=== PATIENT | female | born 1955 | race Caucasian/White ===

== ENCOUNTER 2019-08-03 14:22 | Outpatient (CLI) | payer BC, SELFPAY ==
[2019-08-03 14:57] LABS: Basophils Absolute Auto 0.1 K/mm3 (0.0-0.1); Basophils Percent Auto 0.9 % (0.2-1.2); Eosinophils Absolute Auto 0.2 K/mm3 (0-0.3); Eosinophils Percent Auto 2.2 % (0-4.4); Hematocrit 42.8 % (37.0-47.0); Immature Granulocyte Absolute 0.02 K/mm3 (0.00-0.031); Immature Granulocyte Percent A 0.2 % (0-0.5); Lymphocytes Absolute Auto 1.31 K/mm3 (0.9-3.2); Mean Corpuscular HGB Conc 32.7 g/dl (32-36); Mean Corpuscular Volume 88.6 fl (80-100); Mean Platelet Volume 9.4 fl (7.4-10.4); Monocytes Absolute Auto 0.6 K/mm3 (0.1-0.6); Monocytes Percent Auto 7.1 % (2.6-8.5); Neutrophils Percent Auto 73.6 % (45.5-73.1); Platelet Count Result 244 k/mm3 (150-375); Red Blood Count 4.83 M/mm3 (4.2-5.4); Red Cell Distribution Width 13.4 % (11.5-14.5); White Blood Count 8.2 K/mm3 (4.5-10.0)
[2019-08-03 15:07] LABS: Alanine Aminotransferase 27 U/L (4-35); Albumin Level 4.4 g/dL (3.5-5.1); Alkaline Phosphatase 58 U/L (38-126); Aspartate Amino Transferase 26 U/L (14-36); Bilirubin,Total 0.4 mg/dL (0.2-1.3); Blood Urea Nitrogen 19 mg/dL (7-17); Calcium 9.2 mg/dL (8.4-10.2); Carbon Dioxide 24 mmol/L (22-30); Chloride 110 mmol/L (98-107); Cholesterol 247 mg/dL (0-200); Estimated Glomerular Filt Rate 45; Glucose 105 mg/dL (65-105); HDL Direct 58 mg/dL; Potassium 3.8 mmol/L (3.4-5.0); Sodium 140 mmol/L (137-145); Triglycerides 170 mg/dL (<150)
[2019-08-03 15:18] LABS: LDL Cholesterol Direct 159 mg/dL
[2019-08-03 16:03] LABS: Vitamin D 25 Hydroxy 49.2 ng/mL
== END 2019-08-03 14:23 | disposition home or self-care (01) ==
PROVIDERS: PCP Internal Medicine; Visit Provider Nurse Practitioner
DX: Z13.29 Encounter for screening for other suspected endocrine disorder (principal); Z13.220 Encounter for screening for lipoid disorders; E55.9 Vitamin D deficiency, unspecified
CPT/HCPCS: 36415; 80053; 80061; 82306; 85025

== ENCOUNTER 2022-09-05 09:21 | Outpatient (CLI) | payer MEDICARE, OTHER, SELFPAY ==
[2022-09-05 14:32] LABS: Basophils Absolute Auto 0.1 K/mm3 (0.0-0.1); Basophils Percent Auto 1.1 % (0.2-1.2); Eosinophils Absolute Auto 0.2 K/mm3 (0-0.3); Eosinophils Percent Auto 2.4 % (0-4.4); Hematocrit 45.8 % (37.0-47.0); Hemoglobin 14.7 g/dL (12.0-15.0); Immature Granulocyte Absolute 0.01 K/mm3 (0.00-0.031); Immature Granulocyte Percent A 0.1 % (0-0.5); Lymphocytes Absolute Auto 1.45 K/mm3 (0.9-3.2); Lymphocytes Percent Auto 18.5 % (18.3-44.2); Mean Corpuscular HGB Conc 32.1 g/dl (32-36); Mean Corpuscular Hemoglobin 28.9 pg (26-34); Mean Platelet Volume 9.6 fl (7.4-10.4); Monocytes Absolute Auto 0.5 K/mm3 (0.1-0.6); Monocytes Percent Auto 6.8 % (2.6-8.5); Neutrophils Absolute Auto 5.6 K/mm3 (1.3-6.7); Neutrophils Percent Auto 71.1 % (45.5-73.1); Platelet Count Result 262 k/mm3 (150-375); Red Blood Count 5.09 M/mm3 (4.2-5.4); Red Cell Distribution Width 13.2 % (11.5-14.5); White Blood Count 7.8 K/mm3 (4.5-10.0)
[2022-09-05 14:39] LABS: Alanine Aminotransferase 49 U/L (6-35); Albumin Level 4.5 g/dL (3.5-5.1); Alkaline Phosphatase 63 U/L (38-126); Anion Gap 6 mmol/L (8-16); Aspartate Amino Transferase 36 U/L (14-36); Bilirubin,Total 0.6 mg/dL (0.2-1.3); Blood Urea Nitrogen 25 mg/dL (7-17); Calcium 9.4 mg/dL (8.4-10.2); Carbon Dioxide 26 mmol/L (22-30); Chloride 105 mmol/L (98-107); Cholesterol 275 mg/dL (0-200); Estimated Glomerular Filt Rate 50; Glucose 114 mg/dL (65-110); HDL Direct 56 mg/dL; Potassium 5.1 mmol/L (3.4-5.0); Sodium 137 mmol/L (137-145); Triglycerides 123 mg/dL (<150)
[2022-09-05 14:50] LABS: LDL Cholesterol Direct 180 mg/dL
[2022-09-05 16:37] LABS: Vitamin D 25 Hydroxy 54.2 ng/mL
== END 2022-09-05 09:22 | disposition home or self-care (01) ==
LOC: ANHGOSHLAB 09:22
PROVIDERS: PCP Internal Medicine; Visit Provider Nurse Practitioner
DX: Z13.29 Encounter for screening for other suspected endocrine disorder (principal); Z13.220 Encounter for screening for lipoid disorders; R79.89 Other specified abnormal findings of blood chemistry; E55.9 Vitamin D deficiency, unspecified
CPT/HCPCS: 36415; 80053; 80061; 82306; 85025

== ENCOUNTER 2022-11-19 01:53 | Day surgery (SDC) | payer MEDICARE, OTHER, SELFPAY ==
[2022-11-12 14:48] VITALS: BMI 26.7
[2022-11-19 10:09] VITALS: BP 136/96; PULSE 97; RESP 20; TEMP 36.2; O2SAT 100; BMI 26.9
[2022-11-19] MEDS: LACTATED RINGERS 1,000 ML 150 ML IV CONT (10:16)
--- NOTE | 2022-11-19 10:30 | P.HP_ITS ---
History of Present Illness History of Present Illness Consent: Risks, benefits, and alternatives have been discussed and questions answered. Patient agrees to proceed with procedure. Chief complaint: neoplasm screening Narrative: Samantha Crisostomo is a 67 year old female Presents for screening colonoscopy. Patient's current weight appetite and bowel movements are normal. Patient denies abdominal pain. She has had no bleeding. Family history is noncontributory. Previous colonoscopy 15 years ago was described as unremarkable. Review of Systems Review of Systems: Review of systems noncontributory. FORMERLY [facility], [facility] Past Medical History Medical History Environmental allergies Surgical History Surgical History H/O knee surgery Left: 05/2017 Family History Family History Father Cancer of kidney Sibling Bladder cancer Social History Social History Smoking status: Never smoker Alcohol intake: current Drinks per week: 7 Alcohol use details: 1 glass of wine every night Substance use type: does not use Lack of Transportation: No Lack of Food: Never True Current Housing: I Have Housing Concerned About Future Housing: No Difficulty Paying Gas/Electric Bills: No Difficulty Paying for Meds: No Currently Unemployed: No Education: High School Diploma/GED Difficulty w/ Childcare or Family Care: No Living arrangements: other Additional living arrangements comments: with sp Meds Home Medications and Allergies Allergies Allergy/AdvReac Type Severity Reaction Status Date / Time Penicillins Allergy Unknown Hives Verified 11/19/22 10:08 Vital Signs Vital Signs - 24 hr 11/19/22 10:09 Temperature 97.2 F L Pulse Rate 97 Respiratory Rate 20 Blood Pressure 136/96 H Pulse Oximetry 100 Oxygen Delivery Room Air Exam Narrative: Physical exam reveals patient to be alert. Vital signs stable. HEENT exam is unremarkable. Patient is anicteric. Lungs are clear to auscultation and percussion. Heart is without murmur or extra sounds. Abdomen bowel sounds are present soft nontender with no organomegaly. Digital external rectal exam is normal. Assessment and Plan Assessment and plan (1) Screening for colon cancer: Code(s): Z12.11 - Encounter for screening for malignant neoplasm of colon Status: Acute Assessment and Plan: Patient presents for screening colonoscopy. She appears to be at average risk for colon polyps.
--- NOTE | 2022-11-19 10:45 | P.PNAN_ITS ---
Anes - Initial Pre Proc Eval Procedure: Operation Date: 11/19/22 11:00 Proposed Procedures p Screening Colonoscopy - Sunny So MD Date/Time: 11/19/22 10:45 Surgeon: Sunny So MD Pre Op Diagnosis: neoplasm screening Patient Data Age: 67 Gender: F Height: 1.65 m Weight: 73.5 kg Last Vital Signs Temp 97.2 F L 11/19/22 10:09 Pulse 97 11/19/22 10:09 Resp 20 11/19/22 10:09 BP 136/96 H 11/19/22 10:09 Pulse Ox 100 11/19/22 10:09 O2 Del Method Room Air 11/19/22 10:09 Allergies Allergy/AdvReac Type Severity Reaction Status Date / Time Penicillins Allergy Unknown Hives Verified 11/19/22 10:08 Patient hx anesthesia problems: none Family hx anesthesia problems: none Results Review: All pre-operative results and documents have been reviewed as part of the pre- operative evaluation. FORMERLY [facility] Past Medical History Medical History Environmental allergies Surgical History Surgical History H/O knee surgery Left: 05/2017 Family History Family History Father Cancer of kidney Sibling Bladder cancer Social History Social History Smoking status: Never smoker Alcohol intake: current Drinks per week: 7 Alcohol use details: 1 glass of wine every night Substance use type: does not use Lack of Transportation: No Lack of Food: Never True Current Housing: I Have Housing Concerned About Future Housing: No Difficulty Paying Gas/Electric Bills: No Difficulty Paying for Meds: No Currently Unemployed: No Education: High School Diploma/GED Difficulty w/ Childcare or Family Care: No Living arrangements: other Additional living arrangements comments: with sp Anes - Eval Final PreProcedure Day of Procedure 11/19/22 10:45 Patient weight: normal Heart: regular rate and rhythm Lungs: clear to auscultation Airway: Mallampati scale class II Neurological: alert and oriented Last oral intake: >/= 8 hours ASA classification: II Emergent: no Anesthetic plan: proceed Anesthesia type and monitoring: general GIVS and standard monitoring Results Review: All pre-operative results and documents have been reviewed as part of the pre- operative evaluation. Informed Consent: The patient's anesthetic plan and its attendant risks and benefits were discussed with the patient/family/POA. Questions were solicited and answers provided to the satisfaction of the patient/family/POA.
[2022-11-19 12:16] VITALS: BP 124/80; PULSE 81; RESP 28; O2SAT 98
[2022-11-19 12:26] VITALS: BP 119/78; PULSE 77; RESP 24; O2SAT 99
[2022-11-19 12:48] VITALS: BP 131/81; PULSE 74; RESP 23; O2SAT 99
== END 2022-11-19 12:45 | disposition home or self-care (01) ==
PROVIDERS: PCP Internal Medicine; Visit Provider Internal Medicine Gastroenterology
PROC: 0DJD8ZZ Inspection of Lower Intestinal Tract, Via Natural or Artificial Opening Endoscopic (ICD-10-PCS; CPT 45378; principal; 2022-11-19 11:00)
DX: Z12.11 Encounter for screening for malignant neoplasm of colon (principal); K64.8 Other hemorrhoids; Z80.51 Family history of malignant neoplasm of kidney; Z80.52 Family history of malignant neoplasm of bladder
CPT/HCPCS: G0105; J2704; J7120

== ENCOUNTER 2023-03-19 11:08 | Outpatient (CLI) | payer MEDICARE, OTHER, SELFPAY ==
[2023-03-19 15:26] LABS: Alanine Aminotransferase 32 U/L (6-35); Albumin Level 4.5 g/dL (3.5-5.1); Alkaline Phosphatase 65 U/L (38-126); Anion Gap 9 mmol/L (8-16); Aspartate Amino Transferase 59 U/L (14-36); Bilirubin,Total 0.6 mg/dL (0.2-1.3); Blood Urea Nitrogen 19 mg/dL (7-17); Calcium 9.8 mg/dL (8.4-10.2); Carbon Dioxide 24 mmol/L (22-30); Chloride 106 mmol/L (98-107); Cholesterol 283 mg/dL (0-200); Estimated Glomerular Filt Rate 50; Glucose 119 mg/dL (65-110); HDL Direct 61 mg/dL; Potassium 4.3 mmol/L (3.4-5.0); Sodium 139 mmol/L (137-145); Triglycerides 209 mg/dL (<150)
[2023-03-19 15:38] LABS: LDL Cholesterol Direct 170 mg/dL
[2023-03-21 20:33] LABS: Apolipoprotein B 149 mg/dL (<90)
== END 2023-03-19 11:09 | disposition home or self-care (01) ==
LOC: ANHGOSHLAB 11:12
PROVIDERS: PCP Internal Medicine; Visit Provider Nurse Practitioner
DX: E78.5 Hyperlipidemia, unspecified (principal); R73.9 Hyperglycemia, unspecified; R79.89 Other specified abnormal findings of blood chemistry
CPT/HCPCS: 36415; 80053; 80061; 82172; 83036

== ENCOUNTER 2023-09-15 09:46 | Outpatient (CLI) | payer MEDICARE, OTHER, SELFPAY ==
[2023-09-15 14:46] LABS: Basophils Absolute Auto 0.1 K/mm3 (0.0-0.1); Basophils Percent Auto 1.1 % (0.2-1.2); Eosinophils Absolute Auto 0.2 K/mm3 (0-0.3); Eosinophils Percent Auto 2.9 % (0-4.4); Hematocrit 45.6 % (37.0-47.0); Hemoglobin 14.2 g/dL (12.0-15.0); Immature Granulocyte Absolute 0.02 K/mm3 (0.00-0.031); Immature Granulocyte Percent A 0.3 % (0-0.5); Lymphocytes Absolute Auto 1.41 K/mm3 (0.9-3.2); Lymphocytes Percent Auto 17.7 % (18.3-44.2); Mean Corpuscular HGB Conc 31.1 g/dl (32-36); Mean Corpuscular Hemoglobin 28.6 pg (26-34); Mean Corpuscular Volume 91.9 fl (80-100); Mean Platelet Volume 9.7 fl (7.4-10.4); Monocytes Absolute Auto 0.5 K/mm3 (0.1-0.6); Monocytes Percent Auto 6.4 % (2.6-8.5); Neutrophils Absolute Auto 5.7 K/mm3 (1.3-6.7); Neutrophils Percent Auto 71.6 % (45.5-73.1); Platelet Count Result 258 k/mm3 (150-375); Red Blood Count 4.96 M/mm3 (4.2-5.4); Red Cell Distribution Width 13.6 % (11.5-14.5)
[2023-09-15 15:39] LABS: Hepatitis C Virus Antibody Negative (Negative)
[2023-09-15 15:52] LABS: Alanine Aminotransferase 42 U/L (6-35); Albumin Level 4.6 g/dL (3.5-5.1); Alkaline Phosphatase 67 U/L (38-126); Anion Gap 11 mmol/L (4-12); Aspartate Amino Transferase 55 U/L (14-36); Bilirubin,Total 0.6 mg/dL (0.2-1.3); Blood Urea Nitrogen 20 mg/dL (7-17); Calcium 9.7 mg/dL (8.4-10.2); Carbon Dioxide 24 mmol/L (22-30); Chloride 106 mmol/L (98-107); Cholesterol 229 mg/dL (0-200); Estimated Glomerular Filt Rate > 60; Glucose 107 mg/dL (65-110); HDL Direct 66 mg/dL; Potassium 4.3 mmol/L (3.4-5.0); Sodium 141 mmol/L (137-145); Triglycerides 147 mg/dL (<150)
[2023-09-15 16:03] LABS: LDL Cholesterol Direct 136 mg/dL
[2023-09-15 16:54] LABS: Hemoglobin A1C 6.1 % (<5.7)
[2023-09-16 14:18] LABS: ANA Cascade Screen NEGATIVE (NEGATIVE)
[2023-09-16 15:14] LABS: Albumin 4.3 g/dL (3.8-4.8); Alpha 1 Globulin 0.2 g/dL (0.2-0.3); Alpha 2 Globulin 0.8 g/dL (0.5-0.9); Beta 1 Globulin 0.4 g/dL (0.4-0.6); Gamma Globulin 0.9 g/dL (0.8-1.7)
[2023-09-16 16:03] LABS: Creatinine, Random Urine 186 mg/dL (20-275); Total Protein/Creatinine Ratio 43 mg/g creat (24-184)
== END 2023-09-15 09:47 | disposition home or self-care (01) ==
PROVIDERS: PCP Internal Medicine; Visit Provider Nurse Practitioner
DX: E78.5 Hyperlipidemia, unspecified (principal); E55.9 Vitamin D deficiency, unspecified; N18.9 Chronic kidney disease, unspecified; R73.03 Prediabetes; R74.01 Elevation of levels of liver transaminase levels
CPT/HCPCS: 36415; 80053; 80061; 82570; 83036; 84155; 84156; 84165; 84166; 85025; 86038; 86225; 86235; 86364; 86803

== ENCOUNTER 2024-03-18 11:10 | Outpatient (CLI) | payer MEDICARE, OTHER, SELFPAY ==
[2024-03-18 19:16] LABS: Alanine Aminotransferase 27 U/L (6-35); Albumin Level 4.3 g/dL (3.5-5.1); Alkaline Phosphatase 73 U/L (38-126); Anion Gap 9 mmol/L (4-12); Aspartate Amino Transferase 29 U/L (14-36); Bilirubin,Total 0.7 mg/dL (0.2-1.3); Blood Urea Nitrogen 15 mg/dL (7-17); Calcium 9.7 mg/dL (8.4-10.2); Carbon Dioxide 26 mmol/L (22-30); Chloride 105 mmol/L (98-107); Cholesterol 203 mg/dL (0-200); Estimated Glomerular Filt Rate 57; Glucose 108 mg/dL (65-110); HDL Direct 61 mg/dL; Potassium 4.9 mmol/L (3.4-5.0); Sodium 140 mmol/L (137-145); Triglycerides 154 mg/dL (<150)
[2024-03-18 19:26] LABS: LDL Cholesterol Direct 103 mg/dL
[2024-03-18 19:57] LABS: Vitamin D 25 Hydroxy 39.2 ng/mL
[2024-03-18 20:47] LABS: Hemoglobin A1C 6.1 % (<5.7)
== END 2024-03-18 11:11 | disposition home or self-care (01) ==
LOC: ANHGOSHLAB 11:12
PROVIDERS: PCP Internal Medicine; Visit Provider Nurse Practitioner
DX: R73.03 Prediabetes (principal); R74.01 Elevation of levels of liver transaminase levels; E55.9 Vitamin D deficiency, unspecified
CPT/HCPCS: 36415; 80053; 80061; 82306; 83036

== ENCOUNTER 2024-04-19 14:16 | Outpatient (CLI) | payer MEDICARE, OTHER, SELFPAY ==
--- NOTE | ~2024-04-19 | XR_ITS ---
EXAM: XR hand RT min 3V DATE: 04/19/2024 14:32 HISTORY: M18.10 - Unilateral primary osteoarthritis of first carpo... . COMPARISON: None available. FINDINGS: Normal mineralization. No fracture or dislocation. No lytic or blastic lesion. Scattered a rthritic changes, typical of osteoarthritic arthritis, moderate at the first CMC joint, first interph alangeal joint, and the second, third, and fifth DIP joints. No erosion or periosteal change. Soft ti ssues within normal limits. IMPRESSION: Moderate polyarticular osteoarthritis. Reviewed, dictated and finalized at location [facility]
--- OUTSIDE RECORDS SUMMARY | 2024-04-19 16:40 | XMS_ITS | Referral Summary ---
Author Organization [facility] Address [address] [place] [address] Care Team Providers Care Water Resources Project Manager Name Role Phone JillKam benton Shahzad DO Primary Care Provider [phone] Mauri Ludwig MD Unavailable [phone] Source Comments [facility],non-owned Affiliates and Associated Physician Practices is amultiple site organization consisting of ambulatory clinics and hospital sitesin [place] and [place]. This disclosure is being madepursuant to the Care Everywhere program and may not contain all information available regarding this patient. Last updated 17.[facility] Allergies Active Allergy Reactions Criticality Noted Date Comments Penicillins Urticaria Medium Medications * Be aware that medications may not be up to date on this document. Alwaysverify current medications with the patient. Medication Sig Dispensed Refills Start Date End Date Status diclofenac sodium EC (VOLTAREN) 75 MG tablet Take 1 tablet by mouth 2 times daily 60 tablet 5 02/06/2018 Active Active Problems Problem Noted Date Diagnosed Date Status post left knee replacement 06/05/2017 Primary osteoarthritis of left knee 03/25/2017 Social History Tobacco Use Types Packs/Day Years Used Date Smoking Tobacco: Never Smokeless Tobacco: Never Alcohol Use Standard Drinks/Week Comments Yes 0 (1 standard drink = 0.6 oz pur e alcohol) glass of wine daily Sex and Gender Information Value Date Recorded Sex Assigned at Not on file Gender Identity Not on file Sexual Orientation Not on file Last Filed Vital Signs Vital Sign Reading Time Taken Comments Blood Pressure 113/53 06/07/2017 7:34 AM CDT Pulse 80 06/07/2017 7:34 AM CDT Temperature 36.7 C (98.1 F) 06/07/2017 7:34 AM CDT Respiratory Rate 16 06/07/2017 7:34 AM CDT Oxygen Saturation 97% 06/07/2017 7:34 AM CDT Inhaled Oxygen Concentration - - Weight 72.1 kg (159 lb) 06/05/2017 6:22 AM CDT Height 160 cm (5' 3 ) 06/05/2017 6:22 AM CDT Body Mass Index 28.17 06/05/2017 6:22 AM CDT Functional Status Functional Status Response Date of Assess ment Is person deaf or have serious hearing difficult y? No 06/05/2017 Is person blind or have serious difficulty seein g? No 06/05/2017 Does person have serious dif ficulty walking/climbing stairs? Yes 06/05/2017 Does person have difficulty dressing/bathing? No 06/05/2017 Does person have difficulty doing errands alone? No 06/05/2017 Cognitive Status Response Date of Assessm ent Does person have difficulty concentrating/remembering/making decisions? No 06/05/2017 Plan of Treatment Not on file Medical Devices Implanted Type Area Silo Tender Device Identifier Shelf Expiration Date Model / Serial / Lot Cmnt Bone Cblt 40gm Hvisc Strl Implanted:Qty: 1 on 06/05/2017 by Mauri Ludwig MD at [facility] Left: Knee [employer] 11/23/2018 600-15-000 / / [id number] Cmpnt Fem Kn Lt Cr Cmnt Prm Vngrd Intlk 62.5mm Implanted:Qty: 1 on 06/05/2017 by Mauri Ludwig MD at [facility] Left: Knee Peg [employer] 04/22/2027 [id number] / / [id number] Cmpnt Ptlr 28mm 1 Pg Wire Ascnt Arcm Kn Implanted:Qty: 1 on 06/05/2017 by Mauri Ludwig MD at [facility] Left: Knee Peg [employer] 03/17/2022 [id number] / / [id number] Tray Tib 71mm Kn Cocr I Beam Implanted:Qty: 1 on 06/05/2017 by Mauri Ludwig MD at [facility] Left: Knee Peg [employer]omet 11/14/2026 [id number] / / [id number] Brng [id number] Vngrd Arcm Kn Ant Stab Implanted:Qty: 1 on 06/05/2017 by Mauri Ludwig MD at [facility] Left: Knee Peg [employer] 04/10/2022 [id number] / / [id number] Procedures Procedure Name Priority Date/Time Associated Diagnosis Comments COMPREHENSIVE METABOLIC PANEL Routine 05/15/2017 11:47 AM CDT Preop examination from Last 3 Months or Most Recently Relevant to Health Maintenance Results * (ABNORMAL) COMPREHENSIVE METABOLIC PANEL (05/15/2017 11:47 AM CDT) Glucose 88 74 - 106 mg/dL 05/15/2017 12:29 PM CDT [facility] Sodium 141 136 - 145 mmol/L 05/15/2017 12:29 PM CDT [facility] Potassium 4.0 3.5 - 5.1 mmol/L 05/15/2017 12:29 PM CDT [facility] Chloride 106 98 - 107 mmol/L 05/15/2017 12:29 PM CDT [facility] CO2 28 22 - 31 mmol/L 05/15/2017 12:29 PM CDT [facility] Calcium 9.5 8.5 - 10.1 mg/dL 05/15/2017 12:29 PM CDT [facility] Anion Gap 7(L) 8 - 16 mmol/L 05/15/2017 12:29 PM CDT [facility] BUN 17 7 - 21 mg/dL 05/15/2017 12:29 PM CDT [facility] Creatinine 0.90 0.50 - 1.30 mg/dL 05/15/2017 12:29 PM CDT [facility] Alkaline Phosphatase 75 38 - 126 U/L 05/15/2017 12:29 PM CDT [facility] ALT 81(H) 13 - 61 U/L 05/15/2017 12:29 PM CDT [facility] AST 38 5 - 40 U/L 05/15/2017 12:29 PM CDT [facility] Protein Total 7.4 6.4 - 8.2 gm/dL 05/15/2017 12:29 PM CDT [facility] Albumin 3.7 3.4 - 5.0 gm/dL 05/15/2017 12:29 PM CDT [facility] Bilirubin Total 0.5 0.2 - 1.0 mg/dL 05/15/2017 12:29 PM CDT [facility] eGFR by MDRD >60 >60 mL/min/1.7 3m2 05/15/2017 12:29 PM CDT [facility] eGFR by MDRD >60 >60 mL/min/1.7 3m2 05/15/2017 12:29 PM CDT [facility] Blood BLOOD SPECIMEN / Unknown Venipuncture / Unknown 05/15/2017 11:47 AM CDT 05/15/2017 12:09 PM CDT Mauri Ludwig MD LAB - CHEMISTRY OLEGARIO HERNANDEZ [facility] [address] [place] [address] from Last 3 Months or Most Recently Relevant to Health Maintenance Advance Directives * Full Code (Latest Code Status on File) Date Activated Date Inactivated Comments 06/05/2017 12:18 PM 06/07/2017 1:39 PM Care Teams Water Resources Project Manager Relationship Specialty Start Date End Date Kam Roberts DO PCP - General Internal Medicine 03/25/17 [place] [id number] [facility] [address] [place] [address] Orthopedic Surgery 03/25/17
--- OUTSIDE RECORDS SUMMARY | 2024-04-19 16:40 | XMS_ITS | Clinical Summary ---
Author Organization [facility] Address [address] [place] [address] Care Team Providers Care Medical Education Specialist Name Role Phone AfricaKam knapp Shahzad DO Primary Care Provider [phone] Mauri Ludwig MD Unavailable [phone] Source Comments [facility],non-owned Affiliates and Associated Physician Practices is amultiple site organization consisting of ambulatory clinics and hospital sitesin [place], [place], [place] and [place]. This disclosure is being madepursuant to the Care Everywhere program and may not contain all information available regarding this patient. Last updated 17.[facility] Allergies Active Allergy Reactions Criticality Noted Date [...] Mass Index 28.17 06/05/2017 6:22 AM CDT Plan of Treatment Health Maintenance Due Date Last Done Comments BONE DENSITY TESTING 1955 COLOGUARD (AGES 45-75) - COL ON CA SCREENING 1955 COLON MONITORING 1955 COLONOSCOPY - COLON CA SCREENING 1955 CT COLONOGRAPHY - COLON CA SCREENING 1955 Colorectal Cancer Screening 1955 FIT - COLON CA SCREENING 1955 FLEX SIG - COLON CA SCREENING 1955 LIPID TESTING 1955 MAMMOGRAM 1955 HEPATITIS C SCREENING 08/15/1973 DTAP/TDAP/TD VACCINES (1 - Tdap) 08/19/1974 PNEUMOCOCCAL VACCINE 50+ (1 of 1 - PCV) 08/19/2005 ZOSTER VACCINE (1 of 2) 08/19/2005 SCREENING FOR DIABETES 05/15/2020 05/15/2017 COVID-19 VACCINE (1 - 2023-2 5 season) 2023 INFLUENZA VACCINE (#1) 2023 DEPRESSION SCREENING 02/25/2024 Respiratory Syncytial Virus (RSV) Vaccine Pt: or over 60 yrs (1 - 1-dose 75+ series) 08/19/2030 HEPATITIS B VACCINE Aged Out No longe r eligible based on patient's age to complete this topic HIB VACCINE Aged Out No longer eligi ble based on patient's age to complete this topic HPV VACCINE Aged Out No longer eligi ble based on patient's age to complete this topic MENINGOCOCCAL (Group B) VACCINE Aged Out No longer eligible based on patient's age to complete this topic MENINGOCOCCAL VACCINE Aged Out No reese diana eligible based on patient's age to complete this topic Medical Devices Implanted Type Area Applications Systems Engineer Device Identifier Shelf Expiration Date Model / Serial / Lot Cmnt Bone Cblt 40gm Hvisc Strl Implanted:Qty: 1 on 06/05/2017 by Mauri Ludwig MD at [facility] Left: Knee [employer] 11/23/2018 600-15-000 / / [id number] Cmpnt Fem Kn Lt Cr Cmnt Prm Vngrd Intlk 62.5mm Implanted:Qty: 1 on 06/05/2017 by Mauri Ludwig MD at [facility] Left: Knee Peg [employer] 04/22/2027 [id number] / / [id number] Cmpnt Ptlr 28mm 1 Pg Wire Ascnt Arcm Kn Implanted:Qty: 1 on 06/05/2017 by Mauri Ludwig MD at [facility] Left: Knee Peg [employer] 03/17/2022 [id number] / / [id number] Tray Tib 71mm Kn Cocr I Beam Implanted:Qty: 1 on 06/05/2017 by Mauri Ludwig MD at [facility] Left: Knee Peg [employer] 11/14/2026 [id number] / / [id number] Brng [id number] Vngrd Arcm Kn Ant Stab Implanted:Qty: 1 on 06/05/2017 by Mauri Ludwig MD at [facility] Left: Knee Peg [employer] 04/10/2022 [id number] / / [id number] Procedures Procedure Name Priority Date/Time Associated Diagnosis Comments COMPREHENSIVE METABOLIC PANEL Routine 05/15/2017 11:47 AM CDT Preop examination from Last 3 Months or Most Recently Relevant to Health Maintenance Results * (ABNORMAL) COMPREHENSIVE METABOLIC PANEL (05/15/2017 11:47 AM CDT) Pathologist [facility] Glucose 88 74 - 106 mg/dL 05/15/2017 12:29 PM CDT [facility] Sodium 141 136 - 145 mmol/L 05/15/2017 12:29 PM CDT [facility] Potassium 4.0 3.5 - 5.1 mmol/L 05/15/2017 12:29 PM CDT [facility] Chloride 106 98 - 107 mmol/L 05/15/2017 12:29 PM CDT [facility] CO2 28 22 - 31 mmol/L 05/15/2017 12:29 PM CDT [facility] Calcium 9.5 8.5 - 10.1 mg/dL 05/15/2017 12:29 PM CDT [facility] Anion Gap 7(L) 8 - 16 mmol/L 05/15/2017 12:29 PM CDT [facility] BUN 17 7 - 21 mg/dL 05/15/2017 12:29 PM CDT [facility] Creatinine 0.90 0.50 - 1.30 mg/dL 05/15/2017 12:29 PM CDT [facility] Alkaline Phosphatase 75 38 - 126 U/L 05/15/2017 12:29 PM CDT [facility] ALT 81(H) 13 - 61 U/L 05/15/2017 12:29 PM CDT [facility] AST 38 5 - 40 U/L 05/15/2017 12:29 PM CDT [facility] Protein Total 7.4 6.4 - 8.2 gm/dL 05/15/2017 12:29 PM CDT [facility] Albumin 3.7 3.4 - 5.0 gm/dL 05/15/2017 12:29 PM CDT [facility] Bilirubin Total 0.5 0.2 - 1.0 mg/dL 05/15/2017 12:29 PM CDT [facility] eGFR by MDRD >60 >60 mL/min/1.7 3m2 05/15/2017 12:29 PM CDT [facility] eGFR by MDRD >60 >60 mL/min/1.7 3m2 05/15/2017 12:29 PM CDT [facility] Blood BLOOD SPECIMEN / Unknown Venipuncture / Unknown 05/15/2017 11:47 AM CDT 05/15/2017 12:09 PM CDT Mauri Ludwig MD LAB - CHEMISTRY OLEGARIO HERNANDEZ [facility] Organization Address City/State/ZIP Co de Phone Number [facility] [address] [place] [address] from Last 3 Months or Most Recently Relevant to Health Maintenance Advance Directives * Full Code (Latest Code Status on File) Date Activated Date Inactivated Comments 06/05/2017 12:18 PM 06/07/2017 1:39 PM Care Teams Medical Education Specialist Relationship Specialty Start Date End Date Kam Roberts DO PCP - General Internal Medicine 03/25/17 [place] [id number] [facility] [place] [address] [place] [id number] Orthopedic Surgery 03/25/17
--- OUTSIDE RECORDS SUMMARY | 2024-04-19 16:40 | XMS_ITS | Clinical Summary ---
Author Organization [facility] Address [address] [place] [address] Care Team Providers Care Tool And Die Engineer Name Role Phone Unavailable Primary Care Provider Unavailabl e Social History Tobacco Use Types Packs/Day Years Used Date Smoking Tobacco: Never Assessed Comments Unknown Sex and Gender Information Value Date Recorded Sex Assigned at Not on file Legal Sex Female 4:22 PM CDT Gender Identity Not on file Sexual Orientation Not on file Plan of Treatment Health Maintenance Due Date Last Done Comments Colorectal Cancer Screening Colonoscopy (10 Years) 1955 Hepatitis C 08/19/1973 DTaP, Tdap and Td Vaccines ( 1 - Tdap) 08/19/1974 Mammogram Screening 1995 Zoster Vaccines (1 of 2) 08/19/2005 Dexa Scan (General) 08/19/2020 Pneumococcal Vaccine: 65+ Ye ars (1 of 1 - PCV) 08/19/2020 COVID-19 Vaccine ( - 2023-2 5 season) 2023 Influenza Adult (#1) 2023 RSV Immunization or 60+ Years (1 - 1-dose 75+ series) 08/19/2030 Meningococcal B Vaccine Aged Out No l onger eligible based on patient's age to complete this topic Meningococcal Vaccine Aged Out No reese diana eligible based on patient's age to complete this topic RSV Immunizations Under 20 Months Aged Out No longer eligible based on patient's age to complete this topic
--- OUTSIDE RECORDS SUMMARY | 2024-04-19 16:40 | XMS_ITS | Patient Health Summary ---
Author Organization [facility] Address [address] [place] [address] Care Team Providers Care Car Repossessor Name Role Phone Kam Roberts DO Primary Care Provider [phone] Mauri Ludwig MD Unavailable [phone] Note from [facility] [place],non-owned Affiliates and Associated Physician Practices is amultiple site organization consisting of ambulatory clinics and hospital sitesin [place], [place], [place] and [place]. This disclosure is being madepursuant to the Care Everywhere program and may not contain all information available regarding this patient. Last updated 17.[facility] Allergies * Penicillins(Urticaria) -Medium Criticality Medications * Be aware that medications may not be up to date on this document. Alwaysverify current medications with the patient. * diclofenac sodium EC (VOLTAREN) 75 MG tablet(Started 02/06/2018) Take 1 tablet by mouth 2 times daily 5 refills remaining Active Problems Problem Noted Date Diagnosed Date [...] Mass Index 28.17 06/05/2017 6:22 AM CDT Medical Devices Implanted Type Area Paralegal Secretary Device Identifier Shelf Expiration Date Model / Serial / Lot Cmnt Bone Cblt 40gm Hvisc Strl Implanted:Qty: 1 on 06/05/2017 by Mauri Ludwig MD at [facility] Left: Knee [employer] 11/23/2018 [id number] / / [id number] Cmpnt Fem Kn Lt Cr Cmnt Prm Vngrd Intlk 62.5mm Implanted:Qty: 1 on 06/05/2017 by Mauri Ludwig MD at [facility] Left: Knee Peg [employer] 04/22/2027 [id number] / / [id number] Cmpnt Ptlr 28mm 1 Pg Wire Ascnt Arcm Kn Implanted:Qty: 1 on 06/05/2017 by Mauri Ludwig MD at [facility] Left: Knee Peg [employer] 03/17/2022 [id number] / / [id number] Tray Tib 71mm Kn Cocr I Beam Implanted:Qty: 1 on 06/05/2017 by Mauri Ludwig MD at [facility] Left: Knee Peg [employer] 11/14/2026 [id number] / / [id number] Brng [id number] Vngrd Arcm Kn Ant Stab Implanted:Qty: 1 on 06/05/2017 by Mauri Ludwig MD at [facility] Left: Knee Peg [employer] 04/10/2022 [id number] / / [id number] Procedures * XR KNEE LEFT 3VW(Performed 07/15/2017) Performed for Aftercare following left knee joint replacement surgery * HGB HCT PANEL(Performed 06/07/2017) * HGB HCT PANEL(Performed 06/06/2017) * NEURAXIAL BLOCK(Performed 06/05/2017) * ARTHROPLASTY TOTAL KNEE(Performed 06/05/2017) * COMPREHENSIVE METABOLIC PANEL(Performed 05/15/2017) Performed for Preop examination * CBC W AUTO DIFFERENTIAL(Performed 05/15/2017) Performed for Preop examination * CULTURE MSSA/MRSA(Performed 05/15/2017) Performed for Preop examination * EKG 12-LEAD(Performed 05/15/2017) Performed for Preop examination * XR KNEE LEFT 2VW OR LESS(Performed 03/25/2017) Performed for Primary osteoarthritis of left knee Results * XR KNEE LEFT 3VW (07/15/2017 11:22 AM CDT) Anatomical Region Laterality Modality Lower Extremity Computed Radiogr aphy Narrative 07/17/2017 6:00 PM CDT Sirena Lainez 07/17/2017 6:00 PM Please see progress notes for result. Nakul Cole PA-C DIAGNOSTIC IMAGING ORDERABLES * (ABNORMAL) HGB HCT PANEL (06/07/2017 3:16 AM CDT) Only the most recent of2 resultswithin the time period is included. Hemoglobin 11.2(L) 12.0 - 15.6 gm/dL 06/07/2017 3:38 AM CDT [facility] Hematocrit 35.8(L) 35.9 - 45.5 % 06/07/2017 3:38 AM CDT [facility] Blood BLOOD SPECIMEN / Unknown Venipuncture / Unknown 06/07/2017 3:16 AM CDT 06/07/2017 3:35 AM CDT Mauri Ludwig MD LAB - HEMATOLOGY ORD ERABLES [facility] [address] [place] [address] * CULTURE MSSA/MRSA (05/15/2017 11:47 AM CDT) Culture Negative for methicillin-resist ant Staphylococcus aureus (MRSA) RONAK 05/17/2017 7:18 AM CDT [facility] Microbiology SPECIMEN FROM NASAL FOSSAE / Unknown Collection / Unknown 05/15/2017 11:47 AM CDT 05/15/2017 12:11 PM CDT Mauri Ludwig MD LAB - MICROBIOLOGY O RDERABLES [facility] [address] [place], [place] [address], [facility] [phone] * (ABNORMAL) CBC W AUTO DIFFERENTIAL (05/15/2017 11:47 AM CDT) WBC 7.9 4.4 - 10.7 x10E9/L 05/15/2017 12:13 PM CDT [facility] WBC Corrected x10E9/L 05/15/2017 12:13 PM CDT [facility] RBC 4.73 3.80 - 5.20 x10E12/L 05/15/2017 12:13 PM CDT [facility] Hemoglobin 13.5 12.0 - 15.6 gm/dL 05/15/2017 12:13 PM CDT [facility] Hematocrit 41.1 35.9 - 45.5 % 05/15/2017 12:13 PM CDT [facility] MCV 86.9 80.7 - 98.3 fl 05/15/2017 12:13 PM CDT [facility] MCH 28.5 26.7 - 34.0 pg 05/15/2017 12:13 PM CDT [facility] MCHC 32.8 30.8 - 35.9 gm/dL 05/15/2017 12:13 PM CDT [facility] Platelet Count 229 153 - 416 x10E9/L 05/15/2017 12:13 PM CDT [facility] RDW-CV 13.3 12.1 - 14.9 % 05/15/2017 12:13 PM CDT [facility] MPV 9.5 9.4 - 12.9 fl 05/15/2017 12:13 PM CDT [facility] Neutrophils % 71.3 44.0 - 73.0 % 05/15/2017 12:13 PM CDT [facility] Lymphocytes % 17.4(L) 20.0 - 43.0 % 05/15/2017 12:13 PM CDT [facility] Monocytes % 8.1 5.0 - 13.0 % 05/15/2017 12:13 PM CDT [facility] Eosinophils % 1.8 0.0 - 6.0 % 05/15/2017 12:13 PM CDT [facility] Basophils % 1.1 0.0 - 2.0 % 05/15/2017 12:13 PM CDT [facility] Immature Granulocytes 0.3 0 - 1 % 05/15/2017 12:13 PM CDT [facility] Neutrophil Absolute 5.67 2.01 - 7.14 x10E9/L 05/15/2017 12:13 PM CDT [facility] Lymphocytes Absolute 1.38 1.07 - 3.94 x10E9/L 05/15/2017 12:13 PM CDT [facility] Monocytes Absolute 0.64 0.26 - 1.07 x10E9/L 05/15/2017 12:13 PM CDT [facility] Eosinophils Absolute 0.14 0 - 0.47 x10E9/L 05/15/2017 12:13 PM CDT [facility] Basophils Absolute 0.09(H) 0 - 0.08 x10E9/L 05/15/2017 12:13 PM CDT [facility] Immature Granulocytes Absolute 0.02 0.00 - 0.06 x10E9/L 05/15/2017 12:13 PM CDT [facility] nRBC Auto 0 /100 WBC 05/15/2017 12:13 PM CDT [facility] Blood BLOOD SPECIMEN / Unknown Venipuncture / Unknown 05/15/2017 11:47 AM CDT 05/15/2017 12:09 PM CDT Mauri Ludwig MD LAB - HEMATOLOGY ORD ERABLES [facility] [address] [place] [address] * (ABNORMAL) COMPREHENSIVE METABOLIC PANEL (05/15/2017 11:47 AM CDT) Glucose 88 74 - 106 mg/dL 05/15/2017 12:29 PM CDT [facility] Sodium 141 136 - 145 mmol/L 05/15/2017 12:29 PM CDT [facility] Potassium 4.0 3.5 - 5.1 mmol/L 05/15/2017 12:29 PM CDT [facility] Chloride 106 98 - 107 mmol/L 05/15/2017 12:29 PM CDT [facility] CO2 28 22 - 31 mmol/L 05/15/2017 12:29 PM CDT [facility] Calcium 9.5 8.5 - 10.1 mg/dL 05/15/2017 12:29 PM CDT [facility] Anion Gap 7(L) 8 - 16 mmol/L 05/15/2017 12:29 PM CDT [facility] BUN 17 7 - 21 mg/dL 05/15/2017 12:29 PM CDT [facility] Creatinine 0.90 0.50 - 1.30 mg/dL 05/15/2017 12:29 PM CDT [facility] Alkaline Phosphatase 75 38 - 126 U/L 05/15/2017 12:29 PM CDT [facility] ALT 81(H) 13 - 61 U/L 05/15/2017 12:29 PM CDT [facility] AST 38 5 - 40 U/L 05/15/2017 12:29 PM CDT [facility] Protein Total 7.4 6.4 - 8.2 gm/dL 05/15/2017 12:29 PM CDT [facility] Albumin 3.7 3.4 - 5.0 gm/dL 05/15/2017 12:29 PM CDT [facility] Bilirubin Total 0.5 0.2 - 1.0 mg/dL 05/15/2017 12:29 PM CDT [facility] eGFR by MDRD >60 >60 mL/min/1.7 3m2 05/15/2017 12:29 PM CDT [facility] eGFR by MDRD >60 >60 mL/min/1.7 3m2 05/15/2017 12:29 PM CDT [facility] Blood BLOOD SPECIMEN / Unknown Venipuncture / Unknown 05/15/2017 11:47 AM CDT 05/15/2017 12:09 PM CDT Mauri Ludwig MD LAB - CHEMISTRY OLEGARIO HERNANDEZ [facility] Organization Address City/State/ZIP Co de Phone Number [facility] [address] [place] [address] * EKG 12-LEAD (05/15/2017 11:09 AM CDT) Ventricular Rate 80 BPM [facility] Atrial Rate 80 BPM [facility] P-R Interval 150 ms [facility] QRS Duration ms 72 ms [facility] Q-T Interval ms 390 ms [facility] QTC Calculation (Bezet) 449 ms [facility] Calculated P [place] 60 degrees [facility] Calculated R [place] 1 degrees [facility] Calculated T [place] 14 degrees [facility] Interpretation EKG Normal sinus rhythm Cannot rule out Anterior infarct , age undetermined Abnormal ECG No previous ECGs available Confirmed by FELECIA DRAPER MD ([id number]) on 05/15/2017 4:10:26 PM [facility] 05/15/2017 11:0 9 AM CDT 05/15/2017 4:10 PM CDT Mauri Ludwig MD ECG ORDERABLES [facility] * XR KNEE 1 OR 2 VW LEFT (03/25/2017 4:06 PM ROUSTABOUT SUPERVISOR) Anatomical Region Laterality Modality Lower Extremity Computed Radiogr aphy Narrative 03/25/2017 4:07 PM ROUSTABOUT SUPERVISOR Laura Banda, RT(R) 03/25/2017 4:07 PM See progress notes for results Kristi Sotelo PA-C DIAGNOSTIC IM AGING ORDERABLES Care Teams Car Repossessor Relationship Specialty Start Date End Date Kam Roberts DO PCP - General Internal Medicine 03/25/17 [place] [id number] [facility] [address] [place] [id number] Orthopedic Surgery 03/25/17
== END 2024-04-19 14:17 | disposition home or self-care (01) ==
LOC: ANHIMG 14:19
PROVIDERS: PCP Internal Medicine; Visit Provider Plastic Surgery
DX: M18.11 Unilateral primary osteoarthritis of first carpometacarpal joint, right hand (principal); M19.041 Primary osteoarthritis, right hand
CPT/HCPCS: 73130